=== PATIENT | female | born 1965 | race Two or more races ===

== ENCOUNTER 2017-03-27 06:40 | Outpatient (CLI) | payer OTHER ==
[~2017-03-27 06:40] MED LIST: ADVAIR 2501 DISK W/1 IH; DEPO-MEDROL40 MG/ML IU; DICLOFENAC POTA50 MG PO; NABUMETONE500 MG PO; NEURONTIN300 MG PO; NORFLEX100MG PO; PROVENTIL2.5 MG/3 M IH; SINGULAIR 10MG10 MG PO; SYNTHROID150 MCG PO; XYLOCAINE-MP10 MG/ML IU; ZANAFLEX4 M1 PO
== END 2017-03-27 06:53 | disposition home or self-care (01) ==
LOC: LAB 06:40
DX: D64.89 Other specified anemias (principal); E11.9 Type 2 diabetes mellitus without complications; E78.2 Mixed hyperlipidemia; I10 Essential (primary) hypertension; E03.8 Other specified hypothyroidism

== ENCOUNTER 2017-03-27 09:18 | Outpatient (CLI) | payer OTHER | END 2017-03-27 09:29 | disposition home or self-care (01) | LOC: NUCLEAR 09:18 | DX: M81.0 Age-related osteoporosis without current pathological fracture (principal) ==

== ENCOUNTER 2017-10-19 07:17 | Outpatient (CLI) | payer OTHER ==
[~2017-10-19 07:17] MED LIST changes: +CELEBREX200MG PO
== END 2017-10-19 07:33 | disposition home or self-care (01) ==
LOC: RAD 07:17 → MRI 10:15
DX: M54.12 Radiculopathy, cervical region (principal)

== ENCOUNTER 2017-12-04 13:12 | Outpatient (CLI) | payer OTHER | END 2017-12-04 13:32 | disposition home or self-care (01) | LOC: SONOGRAMA 13:12 | DX: N60.11 Diffuse cystic mastopathy of right breast (principal); N60.12 Diffuse cystic mastopathy of left breast; N63.11 Unspecified lump in the right breast, upper outer quadrant ==

== ENCOUNTER 2018-08-27 07:32 | Outpatient (CLI) | payer OTHER | END 2018-08-27 09:25 | disposition home or self-care (01) | LOC: TOM 07:32 | DX: R06.02 Shortness of breath (principal); J43.2 Centrilobular emphysema; J30.1 Allergic rhinitis due to pollen; Z87.891 Personal history of nicotine dependence ==

== ENCOUNTER 2018-11-26 07:17 | Outpatient (CLI) | payer OTHER | END 2018-11-26 07:30 | disposition home or self-care (01) | LOC: MAMO-SONO 07:17 | DX: N60.11 Diffuse cystic mastopathy of right breast (principal); Z12.31 Encounter for screening mammogram for malignant neoplasm of breast; Z87.898 Personal history of other specified conditions ==

== ENCOUNTER 2018-12-20 07:10 | Outpatient (CLI) | payer OTHER | END 2018-12-20 07:25 | disposition home or self-care (01) | LOC: LAB 07:10 | DX: D68.8 Other specified coagulation defects (principal); I10 Essential (primary) hypertension ==

== ENCOUNTER 2020-10-16 10:26 | Outpatient (CLI) | payer OTHER | END 2020-10-16 10:48 | disposition home or self-care (01) | LOC: MAMO-SONO 10:26 | PROVIDERS: ATTEND Internal Medicine Geriatric Medicine | DX: N63.10 Unspecified lump in the right breast, unspecified quadrant (principal); N63.20 Unspecified lump in the left breast, unspecified quadrant; Z12.31 Encounter for screening mammogram for malignant neoplasm of breast; C50.919 Malignant neoplasm of unspecified site of unspecified female breast; N64.4 Mastodynia; N60.11 Diffuse cystic mastopathy of right breast; N60.12 Diffuse cystic mastopathy of left breast ==

== ENCOUNTER 2020-11-05 14:37 | Outpatient (CLI) | payer OTHER | END 2020-11-05 14:38 | disposition home or self-care (01) | LOC: NUCLEAR 14:37 | PROVIDERS: ATTEND Internal Medicine Geriatric Medicine | DX: M81.0 Age-related osteoporosis without current pathological fracture (principal); M15.0 Primary generalized (osteo)arthritis ==

== ENCOUNTER 2020-12-29 09:05 | Outpatient (CLI) | payer OTHER | END 2020-12-29 09:13 | disposition home or self-care (01) | LOC: RAD 09:05 | PROVIDERS: ATTEND Internal Medicine Geriatric Medicine | DX: I11.9 Hypertensive heart disease without heart failure (principal); Q33.0 Congenital cystic lung; R06.02 Shortness of breath ==

== ENCOUNTER 2021-04-01 13:33 | Outpatient (CLI) | payer OTHER | END 2021-04-01 13:34 | disposition home or self-care (01) | LOC: SONOGRAMA 13:33 | PROVIDERS: ATTEND Surgery | DX: N60.11 Diffuse cystic mastopathy of right breast (principal); N60.12 Diffuse cystic mastopathy of left breast ==

== ENCOUNTER 2021-12-04 11:40 | Outpatient (CLI) | payer OTHER | END 2021-12-04 11:50 | disposition home or self-care (01) | LOC: RAD 11:40 | PROVIDERS: ATTEND Physical Medicine & Rehabilitation | DX: R25.2 Cramp and spasm (principal); M54.2 Cervicalgia; M47.812 Spondylosis without myelopathy or radiculopathy, cervical region ==

== ENCOUNTER 2022-04-16 15:38 | Outpatient (CLI) | payer OTHER | END 2022-04-16 15:47 | disposition home or self-care (01) | LOC: RAD 15:38 | PROVIDERS: ATTEND Internal Medicine Rheumatology | DX: M25.552 Pain in left hip (principal) ==

== ENCOUNTER 2022-04-22 13:27 | Outpatient (CLI) | payer OTHER | END 2022-04-22 13:39 | disposition home or self-care (01) | LOC: MAMO-SONO 13:27 | PROVIDERS: ATTEND Internal Medicine Endocrinology, Diabetes & Metabolism | DX: N64.1 Fat necrosis of breast (principal) ==

== ENCOUNTER 2023-09-25 11:46 | Outpatient (CLI) | payer OTHER | END 2023-09-25 11:49 | disposition home or self-care (01) | LOC: MAMO-SONO 11:46 | PROVIDERS: ATTEND Internal Medicine Sports Medicine | DX: Z12.39 Encounter for other screening for malignant neoplasm of breast (principal) ==

== ENCOUNTER 2023-09-25 13:14 | Outpatient (CLI) | payer OTHER | END 2023-09-25 14:40 | disposition home or self-care (01) | LOC: NUCLEAR 13:14 | PROVIDERS: ATTEND Internal Medicine Sports Medicine | DX: M81.0 Age-related osteoporosis without current pathological fracture (principal) ==

== ENCOUNTER → 2023-12-04 07:09 | Outpatient (CLI) | payer OTHER ==
[2023-12-04 08:30] LABS: HEMATOCRIT 43.5 % (36.0-45.00); HEMOGLOBIN 14.9 g/dL (12.0-15.00); MEAN CELL VOLUME 86.1 fL (80.00-100.00); MEAN CORPUSCULAR HEMOGLOBIN 29.5 pg (27.00-32.0); MEAN CORPUSCULAR HGB CONC 34.3 g/dl (32.0-36.0); PLATELET COUNT 270 K/uL (150-450); RED BLOOD COUNT 5.04 M/uL (4.00-6.00); RED CELL DISTRIBUTION WIDTH 14.3 % (11.5-14.5)
[2023-12-04 08:34] LABS: PH,URINE 5.5 (5.0-8.0); URINE APPEARANCE Clear; URINE BILIRRUBIN Negative (NEGATIVE); URINE BLOOD Negative; URINE COLOR Yellow; URINE GLUCOSE Negative (NEGATIVE); URINE KETONE Negative (NEGATIVE); URINE LEUKOCYTE Negative; URINE NITRATE Negative; URINE PROTEIN Negative (NEGATIVE)
[2023-12-04 08:40] LABS: URINE BACTERIA 147.3 uL (0.0-1933); URINE EPITHELIAL CELLS 7.8 uL (0.0-38.8); URINE RBC 2.2 uL (0.0-20.8)
[2023-12-04 09:40] LABS: % SATURACION 21.7 % (15-50); ALBUMIN 3.6 gm/dL (3.4-5.0); BILIRUBIN TOTAL 0.71 mg/dL (0.3-1.2); CALCIUM 9.1 mg/dL (8.5-10.1); CHOL HDL RATIO 3.9 (0-5.0); CREATININE SERUM 0.48 mg/dL (0.55-1.02); FERRITIN 45.3 NG/ML (8-252); GFR 131.92; GLOBULINA 3.4 G/DL (2.4-3.5); POTASSIUM 3.84 mEq/L (3.5-5.1); TSH 1.21 uIU/mL (0.358-3.74)
[2023-12-04 11:10] LABS: FOLIC ACID 13.26 ng/ml (4.78-20); VITAMIN D3 25 HYDROXY 22.15 ng/ml (30-120)
[2023-12-04 13:13] LABS: MANUAL PLATELET COUNT 668
[2023-12-04 13:15] LABS: PLATELET ESTIMATE INCREASED (NORMAL)
[2023-12-05 09:07] LABS: CA 125 6.1 U/mL (0.0-38.1)
[2023-12-05 13:05] LABS: hgb a 97.1 % (96.4-98.8); hgb a2 2.9 % (1.8-3.2); hgb f 0 % (0.0-2.0); hgb s 0 % (0.0)
[2023-12-07 15:09] LABS: INTRINSIC FACTOR BLOCKING AB 1.1 AU/mL (0.0-1.1); PARIETAL CELL ANTIBODIES 1.9 Units (0.0-20.0)
== END | disposition home or self-care (01) ==
LOC: LAB 07:09
PROVIDERS: ATTEND Internal Medicine Hematology & Oncology
DX: Z80.3 Family history of malignant neoplasm of breast (principal); M81.0 Age-related osteoporosis without current pathological fracture; E03.8 Other specified hypothyroidism; E78.2 Mixed hyperlipidemia; E03.2 Hypothyroidism due to medicaments and other exogenous substances; E89.0 Postprocedural hypothyroidism; M79.7 Fibromyalgia; D75.0 Familial erythrocytosis; D75.1 Secondary polycythemia; Z72.0 Tobacco use; J43.2 Centrilobular emphysema; R06.02 Shortness of breath; Z87.891 Personal history of nicotine dependence; D50.8 Other iron deficiency anemias; R79.9 Abnormal finding of blood chemistry, unspecified; I10 Essential (primary) hypertension; R74.02 Elevation of levels of lactic acid dehydrogenase [LDH]; K76.89 Other specified diseases of liver; D51.0 Vitamin B12 deficiency anemia due to intrinsic factor deficiency; C56.9 Malignant neoplasm of unspecified ovary; R97.0 Elevated carcinoembryonic antigen [CEA]; D50.9 Iron deficiency anemia, unspecified; E03.9 Hypothyroidism, unspecified; I11.9 Hypertensive heart disease without heart failure; E56.8 Deficiency of other vitamins; N39.0 Urinary tract infection, site not specified; Z12.11 Encounter for screening for malignant neoplasm of colon; R19.5 Other fecal abnormalities; E55.9 Vitamin D deficiency, unspecified; N19 Unspecified kidney failure; E11.9 Type 2 diabetes mellitus without complications

== ENCOUNTER 2023-12-25 11:16 | Outpatient (CLI) | payer OTHER | END 2023-12-25 11:21 | disposition home or self-care (01) | LOC: TOM 11:16 | PROVIDERS: ATTEND Internal Medicine Pulmonary Disease | DX: J43.2 Centrilobular emphysema (principal); R06.02 Shortness of breath; Z87.891 Personal history of nicotine dependence ==

== ENCOUNTER 2024-02-23 06:31 | Outpatient (CLI) | payer OTHER ==
[2024-02-23 07:09] LABS: HEMATOCRIT 43.3 % (36.0-45.00); MEAN CELL VOLUME 85.2 fL (80.00-100.00); MEAN CORPUSCULAR HEMOGLOBIN 29.5 pg (27.00-32.0); MEAN CORPUSCULAR HGB CONC 34.6 g/dl (32.0-36.0); PLATELET COUNT 326 K/uL (150-450); RED BLOOD COUNT 5.08 M/uL (4.00-6.00); RED CELL DISTRIBUTION WIDTH 14.5 % (11.5-14.5)
[2024-02-23 07:29] LABS: URINE APPEARANCE Clear; URINE BILIRRUBIN Negative (NEGATIVE); URINE BLOOD Negative; URINE COLOR Yellow; URINE GLUCOSE Negative (NEGATIVE); URINE KETONE Negative (NEGATIVE); URINE LEUKOCYTE Negative; URINE NITRATE Negative; URINE PROTEIN Negative (NEGATIVE); URINE UROBILINOGEN 0.2 E.U./dl
[2024-02-23 07:50] LABS: URINE BACTERIA 2357.2 uL (0.0-1933); URINE EPITHELIAL CELLS 28.8 uL (0.0-38.8); URINE RBC 6.7 uL (0.0-20.8); URINE WBC 21.2 uL (0.0-23.2)
[2024-02-23 08:08] LABS: ALBUMIN 3.7 gm/dL (3.4-5.0); BILIRUBIN TOTAL 0.78 mg/dL (0.3-1.2); CALCIUM 9.4 mg/dL (8.5-10.1); CHOL HDL RATIO 3.6 (0-5.0); CREATININE SERUM 0.57 mg/dL (0.55-1.02); GFR 108.19; GLOBULINA 3.4 G/DL (2.4-3.5); POTASSIUM 4.23 mEq/L (3.5-5.1); T4 FREE 1.42 NG/ML (0.76-1.46); TOTAL PROTEIN 7.1 gm/dL (6.4-8.2); TSH 2.88 uIU/mL (0.358-3.74)
[2024-02-23 08:18] LABS: URINE CAST 0.29 uL (0.0-1.40)
== END 2024-02-23 06:32 | disposition home or self-care (01) ==
LOC: LAB 06:31
PROVIDERS: ATTEND Internal Medicine Sports Medicine
DX: D64.9 Anemia, unspecified (principal); E11.9 Type 2 diabetes mellitus without complications; E78.2 Mixed hyperlipidemia; I10 Essential (primary) hypertension; E03.8 Other specified hypothyroidism; E55.9 Vitamin D deficiency, unspecified

== ENCOUNTER 2024-05-01 12:16 | Inpatient (IN) | payer OTHER ==
[~2024-05-01] VITALS: Ht 170.2 cm; Wt 101.6 kg
[2024-05-01] MEDS ORDERED: ALCLOMETASONE D15 GM TP (12:55)
[2024-05-01] MEDS ORDERED: LIPITOR20 MG PO (12:55)
[2024-05-01] MEDS ORDERED: DIPROSONE OINT.15 GM TP (12:56)
[2024-05-01] MEDS ORDERED: AZELASTINE137 MCG/0. NS (12:56)
[2024-05-01] MEDS ORDERED: DULOXETINE HCL40 MG PO (12:56)
[2024-05-01] MEDS ORDERED: HORIZANT300 MG PO (12:57)
[2024-05-01] MEDS ORDERED: PROTONIX40 M1 PO (12:58)
[2024-05-01] MEDS ORDERED: QUETIAPINE FUM400 M1 PO (12:58)
[2024-05-01] MEDS ORDERED: NABUMETONE750 MG PO (12:58)
[2024-05-01] MEDS ORDERED: NORFLEX100MG PO (12:58)
[2024-05-01] MEDS ORDERED: PROAIR RESPICL90 MCG IH (12:58)
[2024-05-01] MEDS ORDERED: SPIRIVA RESPIMAT4 GM IH (12:59)
[2024-05-01] MEDS ORDERED: SYNTHROID125 MCG PO (12:59)
[2024-05-01] MEDS ORDERED: TRAZODONE HCL150 MG PO (12:59)
[2024-05-01] MEDS ORDERED: VITAMIN D31250 MCG PO (13:00)
[2024-05-01] MEDS ORDERED: ACETAMINOPHEN 500 MG GEL..CAP PO STA (13:14)
[2024-05-01] MEDS ORDERED: ACETAMINOPHEN 500 MG GEL..CAP PO ONE (13:44)
[2024-05-01 14:35] LABS: MEAN CORPUSCULAR HGB CONC 34.1 g/dl (32.0-36.0); PLATELET COUNT 241 K/uL (150-450); RED BLOOD COUNT 5.18 M/uL (4.00-6.00); RED CELL DISTRIBUTION WIDTH 14.2 % (11.5-14.5)
[2024-05-01] MEDS ORDERED: 0.9 % SODIUM CHLORIDE 1,000 ML IV STA (15:04)
[2024-05-01 17:05] LABS: ALBUMIN 3.1 gm/dL (3.4-5.0); BILIRUBIN TOTAL 2.87 mg/dL (0.3-1.2); BILIRUBIN,CONJUGATED 1.32 mg/dL (0.0-0.2); BILIRUBIN,UNCONJUGATED 1.55 mg/dL (0.0-0.6); CALCIUM 10.3 mg/dL (8.5-10.1); CREATININE SERUM 1.38 mg/dL (0.55-1.02); GFR 38.87; POTASSIUM 4.4 mEq/L (3.5-5.1); TOTAL PROTEIN 7.9 gm/dL (6.4-8.2)
[2024-05-01 17:13] LABS: URINE APPEARANCE Turbid; URINE BILIRRUBIN Moderate (NEGATIVE); URINE BLOOD Moderate; URINE COLOR Orange; URINE KETONE Negative (NEGATIVE); URINE LEUKOCYTE Moderate; URINE NITRATE Positive
[2024-05-01 17:17] LABS: URINE EPITHELIAL CELLS 82.6 uL (0.0-38.8); URINE RBC 52.7 uL (0.0-20.8); URINE WBC 211.3 uL (0.0-23.2)
[2024-05-01 17:41] LABS: URINE BACTERIA > 9821.5 uL (0.0-1933); URINE CAST > 21.83 uL (0.0-1.40); URINE GLUCOSE 100 MG/DL (NEGATIVE); URINE PROTEIN 300 (NEGATIVE)
[2024-05-01 18:25] LABS: LIPASE 9 U/L (13-75)
[2024-05-01 18:34] LABS: AMYLASE 11 U/L (25-115)
[2024-05-01] MEDS ORDERED: ACETAMINOPHEN 500 MG GEL..CAP PO PRN (18:45)
[2024-05-01] MEDS ORDERED: FAMOTIDINE/PF 20 MG in 0.9 % SODIUM CHLORIDE 8 ML IV PUSH ONE (18:45)
[2024-05-01] MEDS ORDERED: PIPERACILLIN/TAZOBACTAM SODIUM 3.375 GM in DEXTROSE 5 % IN WATER 100 ML IV ONE (18:45)
[2024-05-01] MEDS ORDERED: FAMOTIDINE/PF 20 MG/2 ML VIAL ONE (18:48)
[2024-05-01] MEDS ORDERED: PIPERACILLIN/TAZOBACTAM SODIUM 3.375 GM VIAL IV ONE (18:48)
[2024-05-01] MEDS ORDERED: LEVALBUTEROL HCL 1.25 MG/3 ML SOLUTION IH SCH ×2 (19:42→20:00)
[2024-05-01] MEDS ORDERED: METHYLPREDNISOLONE SOD SUCC 125 MG VIAL IV ONE (19:45)
[2024-05-01] MEDS ORDERED: 0.9 % SODIUM CHLORIDE 1,000 ML IV SCH (19:45)
[2024-05-01] MEDS ORDERED: BUDESONIDE 0.5 MG/2 ML AMPUL.NEB IH ONE (19:59)
[2024-05-01] MEDS ORDERED: IPRATROPIUM BROMIDE 0.5 MG/2.5 ML AMPUL.NEB IH ONE (19:59)
[2024-05-01] MEDS ORDERED: IPRATROPIUM BROMIDE 0.5 MG/2.5 ML AMPUL.NEB IH SCH ×2 (20:00)
[2024-05-01] MEDS ORDERED: 0.9 % SODIUM CHLORIDE 500 ML IV ONE (20:00)
[2024-05-01] MEDS ORDERED: LEVALBUTEROL HCL 0.63 MG/3 ML SOLUTION IH ONE (20:00)
[2024-05-01] MEDS ORDERED: BUDESONIDE 0.5 MG/2 ML AMPUL.NEB IH SCH (21:00)
[2024-05-01 21:42] LABS: INR 1.18; PARTIAL THROMBOPLASTIN TIME 29.5 SECONDS (22.0-34.0); PROTHROMBIN TIME 12.7 SECONDS (9.0-11.5)
[2024-05-02] VITALS: BP 101/68; O2SAT 98
[2024-05-02] MEDS ORDERED: PIPERACILLIN/TAZOBACTAM SODIUM 3.375 GM in DEXTROSE 5 % IN WATER 100 ML IV SCH
[2024-05-02 00:18] LABS: ABG PO2 74.6 mmHg (80-100); ABG pCO2 30.4 mmHg (35-45); BASE EXCESS -2.7 mmol/l; BICARBONATE 20.2 mmol/l (23-25); SaO2 95.3 %; Tco2 21.1 mmol/l
[2024-05-02 01:43] LABS: allen test SATISFACTORY; o2 21 %; puncture site RADIAL RIGHT
[2024-05-02 03:32] VITALS: BP 135/79
[2024-05-02] MEDS ORDERED: LEVOTHYROXINE SODIUM 125 MCG TABLET PO SCH (06:00)
[2024-05-02] MEDS ORDERED: FAMOTIDINE/PF 20 MG in 0.9 % SODIUM CHLORIDE 8 ML IV PUSH SCH (09:00)
[2024-05-02] MEDS ORDERED: Duloxetine HCl 60 MG CAPSULE.DR PO SCH (09:00)
[2024-05-02] MEDS ORDERED: ENOXAPARIN SODIUM 40 MG/0.4 ML SYRINGE SUBCUTANEO SCH (09:00)
[2024-05-02] MEDS ORDERED: GABAPENTIN 300 MG CAPSULE PO SCH (09:00)
[2024-05-02] MEDS ORDERED: QUETIAPINE FUMARATE 100 MG TABLET PO SCH (09:00)
[2024-05-02 09:14] VITALS: BP 111/70; O2SAT 98
[2024-05-02 11:37] LABS: HEMATOCRIT 39.2 % (36.0-45.00); HEMOGLOBIN 14.1 g/dL (12.0-15.00); MEAN CORPUSCULAR HGB CONC 36.1 g/dl (32.0-36.0); PLATELET COUNT 178 K/uL (150-450); RED BLOOD COUNT 4.72 M/uL (4.00-6.00); RED CELL DISTRIBUTION WIDTH 14.3 % (11.5-14.5)
[2024-05-02 12:23] LABS: ALBUMIN 2.7 gm/dL (3.4-5.0); BILIRUBIN TOTAL 2.29 mg/dL (0.3-1.2); BILIRUBIN,CONJUGATED 1.19 mg/dL (0.0-0.2); BILIRUBIN,UNCONJUGATED 1.1 mg/dL (0.0-0.6); CALCIUM 9.5 mg/dL (8.5-10.1); CREATININE SERUM 1.03 mg/dL (0.55-1.02); GFR 54.47; MAGNESIUM 2.1 mg/dL (1.8-2.4); POTASSIUM 4.11 mEq/L (3.5-5.1); TOTAL PROTEIN 6.3 gm/dL (6.4-8.2); TSH 0.358 uIU/mL (0.358-3.74)
[2024-05-02 13:04] LABS: PHOSPHOROUS 1.8 mg/dL (2.5-4.9)
[2024-05-02] MEDS ORDERED: PIPERACILLIN/TAZOBACTAM SODIUM 2.25 GM VIAL IV ONE (16:19)
[2024-05-02] MEDS ORDERED: TRAZODONE HCL 50 MG TABLET PO SCH (17:00)
[2024-05-02 17:12] VITALS: BP 101/66
[2024-05-02] MEDS ORDERED: POTASSIUM PHOS,M-BASIC-D-BASIC 3 MM/ML VIAL IV ONE (17:30)
[2024-05-02] MEDS ORDERED: PIPERACILLIN/TAZOBACTAM SODIUM 2.25 GM in 0.9 % SODIUM CHLORIDE 50 ML IV SCH (18:00)
[2024-05-03 01:18] VITALS: BP 117/66
[2024-05-03 09:25] VITALS: BP 124/81; O2SAT 98
[2024-05-03] MEDS ORDERED: (FF) Daptomycin 50 MG/ML IV STA (10:00)
[2024-05-03 10:04] LABS: HEMATOCRIT 37.2 % (36.0-45.00); HEMOGLOBIN 12.4 g/dL (12.0-15.00); MEAN CELL VOLUME 85.5 fL (80.00-100.00); MEAN CORPUSCULAR HEMOGLOBIN 28.4 pg (27.00-32.0); MEAN CORPUSCULAR HGB CONC 33.2 g/dl (32.0-36.0); PLATELET COUNT 182 K/uL (150-450); RED BLOOD COUNT 4.36 M/uL (4.00-6.00); RED CELL DISTRIBUTION WIDTH 14.1 % (11.5-14.5)
[2024-05-03 10:52] LABS: ALBUMIN 2.2 gm/dL (3.4-5.0); BILIRUBIN TOTAL 1.25 mg/dL (0.3-1.2); BILIRUBIN,CONJUGATED 0.73 mg/dL (0.0-0.2); BILIRUBIN,UNCONJUGATED 0.52 mg/dL (0.0-0.6); CALCIUM 9.6 mg/dL (8.5-10.1); CREATININE SERUM 0.62 mg/dL (0.55-1.02); GFR 97.86; MAGNESIUM 2.3 mg/dL (1.8-2.4); PHOSPHOROUS 2.2 mg/dL (2.5-4.9); POTASSIUM 4.31 mEq/L (3.5-5.1); TOTAL PROTEIN 5.6 gm/dL (6.4-8.2)
[2024-05-03] MEDS ORDERED: POTASSIUM PHOS,M-BASIC-D-BASIC 3 MM/ML VIAL IV NR (11:30)
[2024-05-03] MEDS ORDERED: PIPERACILLIN/TAZOBACTAM SODIUM 3.375 GM in 0.9 % SODIUM CHLORIDE 100 ML IV SCH (12:00)
[2024-05-03] MEDS ORDERED: METHYLPREDNISOLONE SOD SUCC 40 MG VIAL IV NR (13:30)
[2024-05-03] MEDS ORDERED: DIPHENHYDRAMINE HCL 50 MG/ML VIAL 1ML IV NR (13:30)
[2024-05-03 18:25] VITALS: BP 135/71
[2024-05-04 01:48] VITALS: BP 110/65
[2024-05-04] MEDS ORDERED: CLONAZEPAM 1 MG TABLET PO STA (08:17)
[2024-05-04] MEDS ORDERED: METHYLPREDNISOLONE SOD SUCC 40 MG VIAL IV NR (08:30)
[2024-05-04] MEDS ORDERED: DIPHENHYDRAMINE HCL 25 MG in 0.9 % SODIUM CHLORIDE 25 ML IV NR (08:30)
[2024-05-04 09:39] VITALS: BP 116/72
[2024-05-04 10:08] LABS: hav igm Negative (Negative); hcv Non Reactive (Non Reactive); hep b c Negative (Negative); hep b s ag Negative (Negative)
[2024-05-04] MEDS ORDERED: BENZONATATE 100 MG CAPSULE PO STA (12:31)
[2024-05-04] MEDS ORDERED: (FF) Daptomycin 50 MG/ML IV SCH (17:00)
[2024-05-04] MEDS ORDERED: GUAIFENESIN 600 MG TABLET.SA PO SCH (17:00)
[2024-05-04 17:36] VITALS: BP 132/75; O2SAT 97
[2024-05-04] MEDS ORDERED: METHYLPREDNISOLONE SOD SUCC 40 MG VIAL IV STA (18:37)
[2024-05-04] MEDS ORDERED: BENZONATATE 100 MG CAPSULE PO SCH (21:00)
[2024-05-05 03:23] VITALS: BP 123/79
[2024-05-05 07:18] LABS: BILIRUBIN TOTAL 1.34 mg/dL (0.3-1.2); BILIRUBIN,CONJUGATED 0.64 mg/dL (0.0-0.2); BILIRUBIN,UNCONJUGATED 0.7 mg/dL (0.0-0.6); CALCIUM 8.6 mg/dL (8.5-10.1); CREATININE SERUM 0.63 mg/dL (0.55-1.02); GFR 96.07; MAGNESIUM 2.2 mg/dL (1.8-2.4); PHOSPHOROUS 2.7 mg/dL (2.5-4.9); POTASSIUM 3.9 mEq/L (3.5-5.1); TOTAL PROTEIN 5.5 gm/dL (6.4-8.2)
[2024-05-05 07:29] LABS: C-REACTIVE PROTEIN 18.9 MG/DL (0.00-0.29)
[2024-05-05] MEDS ORDERED: METHYLPREDNISOLONE SOD SUCC 40 MG VIAL IV SCH (09:00)
[2024-05-05 09:01] VITALS: BP 110/66
[2024-05-05 11:11] LABS: HEMATOCRIT 39.6 % (36.0-45.00); HEMOGLOBIN 13.3 g/dL (12.0-15.00); MEAN CELL VOLUME 85.3 fL (80.00-100.00); MEAN CORPUSCULAR HEMOGLOBIN 28.6 pg (27.00-32.0); MEAN CORPUSCULAR HGB CONC 33.5 g/dl (32.0-36.0); PLATELET COUNT 195 K/uL (150-450); RED BLOOD COUNT 4.64 M/uL (4.00-6.00); RED CELL DISTRIBUTION WIDTH 14.6 % (11.5-14.5)
[2024-05-05 18:39] VITALS: BP 139/84
[2024-05-05] MEDS ORDERED: FAMOtidine 20 MG TABLET PO SCH (21:00)
[2024-05-06 03:13] VITALS: BP 112/65; O2SAT 97
[2024-05-06 09:24] VITALS: BP 124/88; O2SAT 96
[2024-05-06 17:49] VITALS: BP 146/85
[2024-05-06] MEDS ORDERED: METHYLPREDNISOLONE SOD SUCC 40 MG VIAL IV SCH (21:00)
[2024-05-07 01:56] VITALS: BP 107/62; O2SAT 97
[2024-05-07 08:23] LABS: HEMATOCRIT 38.1 % (36.0-45.00); HEMOGLOBIN 12.7 g/dL (12.0-15.00); MEAN CELL VOLUME 85.4 fL (80.00-100.00); MEAN CORPUSCULAR HEMOGLOBIN 28.4 pg (27.00-32.0); MEAN CORPUSCULAR HGB CONC 33.3 g/dl (32.0-36.0); PLATELET COUNT 240 K/uL (150-450); RED BLOOD COUNT 4.46 M/uL (4.00-6.00); RED CELL DISTRIBUTION WIDTH 15.1 % (11.5-14.5)
[2024-05-07 09:10] LABS: BILIRUBIN TOTAL 0.62 mg/dL (0.3-1.2); BILIRUBIN,CONJUGATED 0.22 mg/dL (0.0-0.2); BILIRUBIN,UNCONJUGATED 0.4 mg/dL (0.0-0.6); CALCIUM 9.2 mg/dL (8.5-10.1); CREATININE SERUM 0.6 mg/dL (0.55-1.02); GFR 101.63; MAGNESIUM 2.1 mg/dL (1.8-2.4); POTASSIUM 5.12 mEq/L (3.5-5.1); TOTAL PROTEIN 5.4 gm/dL (6.4-8.2)
[2024-05-07 09:50] VITALS: BP 107/70; O2SAT 99
[2024-05-07 18:26] VITALS: BP 131/77; O2SAT 100
[2024-05-08 02:53] VITALS: BP 109/67; O2SAT 98
[2024-05-08 12:09] VITALS: BP 111/74
[2024-05-08 19:26] VITALS: BP 110/67; O2SAT 98
[2024-05-09 01:21] VITALS: BP 101/60; O2SAT 98
[2024-05-09] MEDS ORDERED: METHYLPREDNISOLONE SOD SUCC 40 MG VIAL IV SCH (09:00)
[2024-05-09 09:39] VITALS: BP 117/71
[2024-05-09] MEDS ORDERED: fentaNYL CITRATE 50 MCG/ML AMPUL IV PUSH ONE (15:45)
[2024-05-09] MEDS ORDERED: MIDAZOLAM HCL 2 MG/2 ML VIAL IV PUSH ONE (15:45)
[2024-05-09] MEDS ORDERED: PIPERACILLIN/TAZOBACTAM SODIUM 3.375 GM VIAL IV ONE (16:21)
[2024-05-09 16:30] VITALS: BP 103/83
[2024-05-10 02:50] VITALS: BP 109/70
[2024-05-10 08:00] VITALS: BP 131/78
[2024-05-10 09:16] LABS: HEMATOCRIT 40.1 % (36.0-45.00); MEAN CELL VOLUME 86.9 fL (80.00-100.00); MEAN CORPUSCULAR HEMOGLOBIN 28.2 pg (27.00-32.0); MEAN CORPUSCULAR HGB CONC 32.4 g/dl (32.0-36.0); RED BLOOD COUNT 4.61 M/uL (4.00-6.00); RED CELL DISTRIBUTION WIDTH 15.3 % (11.5-14.5)
[2024-05-10 09:53] LABS: ALBUMIN 2.3 gm/dL (3.4-5.0); BILIRUBIN TOTAL 0.92 mg/dL (0.3-1.2); BILIRUBIN,CONJUGATED 0.21 mg/dL (0.0-0.2); BILIRUBIN,UNCONJUGATED 0.71 mg/dL (0.0-0.6); CREATININE SERUM 0.61 mg/dL (0.55-1.02); GFR 99.71; MAGNESIUM 2.4 mg/dL (1.8-2.4); PHOSPHOROUS 3.3 mg/dL (2.5-4.9); POTASSIUM 4.58 mEq/L (3.5-5.1); TOTAL PROTEIN 5.9 gm/dL (6.4-8.2)
[2024-05-10 09:56] LABS: C-REACTIVE PROTEIN 12.4 MG/DL (0.00-0.29)
[2024-05-10 10:09] LABS: PLATELET COUNT 387 K/uL (150-450)
[2024-05-10 16:34] VITALS: BP 110/63
[2024-05-10] MEDS ORDERED: SODIUM CL 0.9% 100 ML IV.SOLN IV ONE (16:41)
[2024-05-11 02:37] VITALS: BP 114/63
[2024-05-11 09:33] VITALS: BP 132/76
[2024-05-11 19:40] VITALS: BP 160/85; O2SAT 97
[2024-05-12 01:44] VITALS: BP 98/53
[2024-05-12 09:30] VITALS: BP 109/68; O2SAT 99
[2024-05-12 18:51] VITALS: BP 110/68; O2SAT 96
[2024-05-13 01:30] VITALS: BP 163/83
[2024-05-13 07:21] LABS: ALBUMIN 2.1 gm/dL (3.4-5.0); BILIRUBIN TOTAL 0.76 mg/dL (0.3-1.2); CALCIUM 8.6 mg/dL (8.5-10.1); CREATININE SERUM 0.61 mg/dL (0.55-1.02); GFR 99.71; GLOBULINA 3.4 G/DL (2.4-3.5); MAGNESIUM 2.4 mg/dL (1.8-2.4); POTASSIUM 4.28 mEq/L (3.5-5.1); TOTAL PROTEIN 5.5 gm/dL (6.4-8.2)
[2024-05-13 07:25] LABS: C-REACTIVE PROTEIN 10.6 MG/DL (0.00-0.29)
[2024-05-13 08:21] LABS: HEMATOCRIT 30.6 % (36.0-45.00); HEMOGLOBIN 10.9 g/dL (12.0-15.00); MEAN CELL VOLUME 84.1 fL (80.00-100.00); MEAN CORPUSCULAR HGB CONC 35.7 g/dl (32.0-36.0); PLATELET COUNT 332 K/uL (150-450); RED BLOOD COUNT 3.63 M/uL (4.00-6.00); RED CELL DISTRIBUTION WIDTH 15.1 % (11.5-14.5)
[2024-05-13 08:26] VITALS: BP 111/73
[2024-05-13] MEDS ORDERED: METHYLPREDNISOLONE SOD SUCC 40 MG VIAL ONE (10:59)
[2024-05-13] MEDS ORDERED: DIPHENHYDRAMINE HCL 50 MG/ML VIAL 1ML ONE (10:59)
[2024-05-13] MEDS ORDERED: DIPHENHYDRAMINE HCL 50 MG/ML VIAL 1ML IV ONE (11:15)
[2024-05-13] MEDS ORDERED: METHYLPREDNISOLONE SOD SUCC 40 MG VIAL IV ONE (11:15)
[2024-05-13 18:45] VITALS: BP 140/85; O2SAT 97
[2024-05-13] MEDS ORDERED: POLYETHYLENE GLYCOL 3350 17 GM BLIST.PACK PO SCH (21:00)
[2024-05-14 02:14] VITALS: BP 129/75
[2024-05-14 08:19] VITALS: BP 117/74
[2024-05-14 17:45] VITALS: BP 123/80; O2SAT 97
[2024-05-15 02:03] VITALS: BP 100/50
[2024-05-15 09:27] VITALS: BP 128/81
[2024-05-15 17:48] VITALS: BP 142/87; O2SAT 98
[2024-05-15] MEDS ORDERED: CEFTRIAXONE SODIUM 2,000 MG VIAL IV SCH (18:20)
[2024-05-16 02:57] VITALS: BP 93/42
[2024-05-16 06:37] LABS: HEMATOCRIT 31.7 % (36.0-45.00); HEMOGLOBIN 10.9 g/dL (12.0-15.00); MEAN CELL VOLUME 85.2 fL (80.00-100.00); MEAN CORPUSCULAR HEMOGLOBIN 29.2 pg (27.00-32.0); MEAN CORPUSCULAR HGB CONC 34.2 g/dl (32.0-36.0); PLATELET COUNT 414 K/uL (150-450); RED BLOOD COUNT 3.72 M/uL (4.00-6.00)
[2024-05-16 07:34] LABS: ALBUMIN 2.1 gm/dL (3.4-5.0); BILIRUBIN TOTAL 0.36 mg/dL (0.3-1.2); CALCIUM 8.7 mg/dL (8.5-10.1); CREATININE SERUM 0.62 mg/dL (0.55-1.02); GFR 97.86; GLOBULINA 3.4 G/DL (2.4-3.5); POTASSIUM 4.63 mEq/L (3.5-5.1); TOTAL PROTEIN 5.5 gm/dL (6.4-8.2)
[2024-05-16 09:45] VITALS: BP 119/76
[2024-05-16] MEDS ORDERED: LEVALBUTEROL HCL 1.25 MG/3 ML SOLUTION IH SCH (13:00)
[2024-05-16] MEDS ORDERED: IPRATROPIUM BROMIDE 0.5 MG/2.5 ML AMPUL.NEB IH SCH (17:00)
[2024-05-16 18:31] VITALS: BP 105/58
[2024-05-17 01:31] VITALS: BP 90/50; O2SAT 96
[2024-05-17 08:58] VITALS: BP 119/75
[2024-05-17 16:55] VITALS: BP 137/80; O2SAT 97
[2024-05-17] MEDS ORDERED: MIDAZOLAM HCL 2 MG/2 ML VIAL IV PUSH ONE (18:00)
[2024-05-17] MEDS ORDERED: fentaNYL CITRATE 50 MCG/ML AMPUL IV PUSH ONE (18:00)
[2024-05-18 01:36] VITALS: BP 121/59
[2024-05-18 10:06] VITALS: BP 111/68; O2SAT 97
[2024-05-18 18:17] VITALS: BP 102/58; O2SAT 97
[2024-05-19 02:11] VITALS: BP 149/69
[2024-05-19 05:06] LABS: HEMATOCRIT 31.9 % (36.0-45.00); PLATELET COUNT 402 K/uL (150-450); RED BLOOD COUNT 3.71 M/uL (4.00-6.00); RED CELL DISTRIBUTION WIDTH 14.6 % (11.5-14.5)
[2024-05-19 05:07] LABS: HEMOGLOBIN 10.9 g/dL (12.0-15.00); MEAN CORPUSCULAR HEMOGLOBIN 29.3 pg (27.00-32.0)
[2024-05-19 05:37] LABS: ALBUMIN 2.2 gm/dL (3.4-5.0); BILIRUBIN TOTAL 0.47 mg/dL (0.3-1.2); CALCIUM 8.7 mg/dL (8.5-10.1); CREATININE SERUM 0.51 mg/dL (0.55-1.02); GFR 122.59; GLOBULINA 3.5 G/DL (2.4-3.5); POTASSIUM 4.06 mEq/L (3.5-5.1); TOTAL PROTEIN 5.7 gm/dL (6.4-8.2)
[2024-05-19 05:52] LABS: C-REACTIVE PROTEIN 9.08 MG/DL (0.00-0.29)
[2024-05-19 08:00] VITALS: BP 117/71
[2024-05-19] MEDS ORDERED: Duloxetine HCl 30 MG CAPSULE.DR PO SCH (09:00)
[2024-05-19 19:48] VITALS: BP 120/75; O2SAT 96
[2024-05-20 04:08] VITALS: BP 104/65
[2024-05-20 09:23] VITALS: BP 116/73
[2024-05-20 18:55] VITALS: BP 138/77; O2SAT 100
[2024-05-21 01:25] VITALS: BP 100/62; O2SAT 96
[2024-05-21 08:18] VITALS: BP 111/73
[2024-05-21 18:11] VITALS: BP 123/74; O2SAT 100
[2024-05-22 01:39] VITALS: BP 121/71; O2SAT 96
[2024-05-22 09:18] VITALS: BP 112/74
[2024-05-22 17:36] VITALS: BP 130/68; O2SAT 97
[2024-05-23 00:50] VITALS: BP 124/76; O2SAT 96
[2024-05-23 07:08] LABS: HEMATOCRIT 32.9 % (36.0-45.00); HEMOGLOBIN 10.8 g/dL (12.0-15.00); MEAN CELL VOLUME 85.7 fL (80.00-100.00); MEAN CORPUSCULAR HGB CONC 32.7 g/dl (32.0-36.0); PLATELET COUNT 317 K/uL (150-450); RED BLOOD COUNT 3.84 M/uL (4.00-6.00); RED CELL DISTRIBUTION WIDTH 14.5 % (11.5-14.5)
[2024-05-23 07:40] LABS: ALBUMIN 2.3 gm/dL (3.4-5.0); BILIRUBIN TOTAL 0.25 mg/dL (0.3-1.2); CREATININE SERUM 0.47 mg/dL (0.55-1.02); GFR 134.71; GLOBULINA 3.4 G/DL (2.4-3.5); MAGNESIUM 2.2 mg/dL (1.8-2.4); PHOSPHOROUS 3.1 mg/dL (2.5-4.9); POTASSIUM 4.24 mEq/L (3.5-5.1); TOTAL PROTEIN 5.7 gm/dL (6.4-8.2)
[2024-05-23 07:52] LABS: C-REACTIVE PROTEIN 2.4 MG/DL (0.00-0.29)
[2024-05-23 08:24] VITALS: BP 142/83
[2024-05-23 16:22] VITALS: BP 113/73
[2024-05-24 01:28] VITALS: BP 112/68; O2SAT 97
[2024-05-24 08:48] VITALS: BP 142/80; O2SAT 97
[2024-05-24] MEDS ORDERED: METHYLPREDNISOLONE SOD SUCC 40 MG VIAL IV NR (11:15)
[2024-05-24] MEDS ORDERED: DIPHENHYDRAMINE HCL 50 MG/ML VIAL 1ML IV NR (11:15)
[2024-05-24 17:46] VITALS: BP 135/80; O2SAT 96
[2024-05-25 02:44] VITALS: BP 111/68; O2SAT 95
[2024-05-25 05:21] LABS: MEAN CELL VOLUME 85.4 fL (80.00-100.00); MEAN CORPUSCULAR HGB CONC 33.2 g/dl (32.0-36.0); PLATELET COUNT 284 K/uL (150-450); RED BLOOD COUNT 4.09 M/uL (4.00-6.00); RED CELL DISTRIBUTION WIDTH 14.4 % (11.5-14.5)
[2024-05-25 05:22] LABS: HEMOGLOBIN 11.6 g/dL (12.0-15.00); MEAN CORPUSCULAR HEMOGLOBIN 28.3 pg (27.00-32.0)
[2024-05-25] MEDS ORDERED: BUDESONIDE 0.5 MG/2 ML AMPUL.NEB IH SCH (09:00)
[2024-05-25 09:56] VITALS: BP 123/76; O2SAT 95
[2024-05-25 18:32] VITALS: BP 106/68
[2024-05-26 01:50] VITALS: BP 122/73; O2SAT 96
[2024-05-26 08:14] VITALS: BP 130/85
[2024-05-26] MEDS ORDERED: CYMBALTA30 MG PO (14:23)
[2024-05-26] MEDS ORDERED: SYNTHROID125 MCG PO (14:23)
[2024-05-26] MEDS ORDERED: BENZONATATE100 MG PO (14:23)
[2024-05-26] MEDS ORDERED: GABAPENTIN300 MG PO (14:23)
[2024-05-26] MEDS ORDERED: FAMOTIDINE20 MG PO (14:23)
[2024-05-26] MEDS ORDERED: LIPITOR20 MG PO (14:23)
== END 2024-05-26 14:45 | disposition home or self-care (01) | DRG 871 ==
LOC: ER 12:18 → MEDJ 19:57
PROVIDERS: General Practice; Internal Medicine; Internal Medicine Infectious Disease; ADMIT Internal Medicine Geriatric Medicine; ATTEND Internal Medicine Geriatric Medicine
PROC: BW40ZZZ Ultrasonography of Abdomen (ICD-10-PCS; 2024-05-01)
PROC: BW21YZZ Computerized Tomography (CT Scan) of Abdomen and Pelvis using Other Contrast (ICD-10-PCS; 2024-05-02)
PROC: BW30YZZ Magnetic Resonance Imaging (MRI) of Abdomen using Other Contrast (ICD-10-PCS; 2024-05-03)
PROC: B24BZZZ Ultrasonography of Heart with Aorta (ICD-10-PCS; 2024-05-03)
PROC: 0F903ZX Drainage of Liver, Percutaneous Approach, Diagnostic (ICD-10-PCS; principal; 2024-05-09)
PROC: 0FB03ZX Excision of Liver, Percutaneous Approach, Diagnostic (ICD-10-PCS; 2024-05-09)
PROC: BW20YZZ Computerized Tomography (CT Scan) of Abdomen using Other Contrast (ICD-10-PCS; 2024-05-13)
PROC: 0F903ZX Drainage of Liver, Percutaneous Approach, Diagnostic (ICD-10-PCS; 2024-05-17)
PROC: 0FB03ZX Excision of Liver, Percutaneous Approach, Diagnostic (ICD-10-PCS; 2024-05-17)
PROC: BW21YZZ Computerized Tomography (CT Scan) of Abdomen and Pelvis using Other Contrast (ICD-10-PCS; 2024-05-24)
DX: A40.8 Other streptococcal sepsis (principal); K75.0 Abscess of liver; J44.1 Chronic obstructive pulmonary disease with (acute) exacerbation; N39.0 Urinary tract infection, site not specified; N17.9 Acute kidney failure, unspecified; E78.5 Hyperlipidemia, unspecified; E03.9 Hypothyroidism, unspecified; M79.7 Fibromyalgia; J45.909 Unspecified asthma, uncomplicated; D64.9 Anemia, unspecified; B95.4 Other streptococcus as the cause of diseases classified elsewhere
CPT/HCPCS: 74182

== ENCOUNTER 2024-05-27 15:04 | Emergency (ER) | payer OTHER ==
[~2024-05-27] VITALS: Ht 170.2 cm; Wt 101.6 kg
[~2024-05-27 15:04] MED LIST changes: +ALCLOMETASONE D15 GM TP; +AZELASTINE137 MCG/0. NS; +BENZONATATE100 MG PO; +CYMBALTA30 MG PO; +DIPROSONE OINT.15 GM TP; +DULOXETINE HCL40 MG PO; +FAMOTIDINE20 MG PO; +GABAPENTIN300 MG PO; +HORIZANT300 MG PO; +LIPITOR20 MG PO; +NABUMETONE750 MG PO; +PROAIR RESPICL90 MCG IH; +PROTONIX40 M1 PO; +QUETIAPINE FUM400 M1 PO; +SPIRIVA RESPIMAT4 GM IH; +SYNTHROID125 MCG PO; +TRAZODONE HCL150 MG PO; +VITAMIN D31250 MCG PO
== END 2024-05-27 17:03 | disposition home or self-care (01) ==
LOC: ER 15:07
DX: Z95.828 Presence of other vascular implants and grafts (principal); E03.8 Other specified hypothyroidism; Z88.2 Allergy status to sulfonamides; Z88.5 Allergy status to narcotic agent

== ENCOUNTER → 2024-06-24 06:55 | Outpatient (CLI) | payer OTHER ==
[2024-06-24 07:53] LABS: HEMATOCRIT 41.1 % (36.0-45.00); HEMOGLOBIN 13.9 g/dL (12.0-15.00); MEAN CELL VOLUME 84.2 fL (80.00-100.00); MEAN CORPUSCULAR HEMOGLOBIN 28.4 pg (27.00-32.0); MEAN CORPUSCULAR HGB CONC 33.8 g/dl (32.0-36.0); PLATELET COUNT 297 K/uL (150-450); RED BLOOD COUNT 4.88 M/uL (4.00-6.00); RED CELL DISTRIBUTION WIDTH 15.2 % (11.5-14.5)
[2024-06-24 08:09] LABS: ALBUMIN 3.5 gm/dL (3.4-5.0); BILIRUBIN TOTAL 0.55 mg/dL (0.3-1.2); CALCIUM 9.8 mg/dL (8.5-10.1); CREATININE SERUM 0.63 mg/dL (0.55-1.02); GFR 96.07; GLOBULINA 3.9 G/DL (2.4-3.5); POTASSIUM 4.73 mEq/L (3.5-5.1); TOTAL PROTEIN 7.4 gm/dL (6.4-8.2)
[2024-06-24 08:12] LABS: C-REACTIVE PROTEIN 0.3 MG/DL (0.00-0.29)
== END | disposition home or self-care (01) ==
LOC: LAB 06:55
PROVIDERS: ATTEND Radiology Diagnostic Radiology
DX: K75.0 Abscess of liver (principal); D68.9 Coagulation defect, unspecified

== ENCOUNTER 2024-06-24 09:03 | Outpatient (CLI) | payer OTHER | END 2024-06-24 09:17 | disposition home or self-care (01) | LOC: TOM 09:03 | PROVIDERS: ATTEND Internal Medicine Geriatric Medicine | DX: K75.0 Abscess of liver (principal) ==

== ENCOUNTER 2024-10-15 10:02 | Outpatient (CLI) | payer OTHER ==
[2024-10-15 11:00] LABS: BASO % 1.8 % (0.1-1.2); EOS # 0.20 (0.04-0.54); EOS % 3.2 % (0.7-7.0); LYMPH # 1.46 (1.18-3.74); LYMPH % 23.4 % (19.3-53.1); MEAN PLATELET VOLUME 10.20 fl (9.4-12.4); MONO # 0.71 (0.24-0.82); MONO % 11.4 % (4.7-12.5); NEUT # 3.74 (1.56-6.13); NEUT % 59.7 % (34.0-71.1); RED CELL DISTRIBUTION WIDTH 14.6 % (11.6-14.4)
[2024-10-15 11:24] LABS: URINE APPEARANCE Clear; URINE BILIRRUBIN Negative (NEGATIVE); URINE BLOOD Negative; URINE COLOR Yellow; URINE GLUCOSE Negative (NEGATIVE); URINE KETONE Negative (NEGATIVE); URINE LEUKOCYTE Negative; URINE NITRATE Negative; URINE PROTEIN Negative (NEGATIVE); URINE UROBILINOGEN 0.2 E.U./dl
[2024-10-15 11:28] LABS: URINE BACTERIA 4.7 uL (0.0-1933); URINE EPITHELIAL CELLS 2.2 uL (0.0-38.8); URINE WBC 2.4 uL (0.0-23.2)
[2024-10-15 11:43] LABS: URINE CAST 0.00 uL (0.0-1.40); URINE RBC 1.3 uL (0.0-20.8)
[2024-10-15 11:49] LABS: ALT/SGPT 33.0 U/L (12-78); AST/SGOT 14.0 U/L (15-37); BILIRUBIN TOTAL 0.87 mg/dL (0.3-1.2); BILIRUBIN,CONJUGATED 0.17 mg/dL (0.0-0.2); BUN CREA RATIO 23.0 (7.0-25.0); CHOL HDL RATIO 3.3 (0-5.0); CREATININE SERUM 0.62 mg/dL (0.55-1.02); FE 113.0 ug/dl (50-170); GFR 97.86; GLOBULINA 3.2 G/DL (2.4-3.5); GLUCOSE FASTING 83.0 mg/dL (65-100); HDL 53.0 mg/dl (40-60); LDH 236.0 U/L (84-246); LDL 105.0 mg/dl (0-130); OSMOLALITY SERUM 283.0 MOSM/KG (275-295); PHOSPHOKINASE CREATININE 105.0 U/L (26-192); T4 FREE 1.17 NG/ML (0.76-1.46); VLDL 18.0 (0-39)
[2024-10-15 12:13] LABS: TSH 8.49 uIU/mL (0.358-3.74)
[2024-10-17 11:19] LABS: FOLIC ACID 8.78 ng/ml (4.78-20); VITAMIN D3 25 HYDROXY 21.03 ng/ml (30-120)
== END 2024-10-15 10:52 | disposition home or self-care (01) ==
LOC: LAB 10:02
PROVIDERS: ATTEND Internal Medicine Hematology & Oncology
DX: D50.8 Other iron deficiency anemias (principal); R79.9 Abnormal finding of blood chemistry, unspecified; I10 Essential (primary) hypertension; R74.02 Elevation of levels of lactic acid dehydrogenase [LDH]; K76.89 Other specified diseases of liver; D51.8 Other vitamin B12 deficiency anemias; Z80.3 Family history of malignant neoplasm of breast; D75.1 Secondary polycythemia; M81.0 Age-related osteoporosis without current pathological fracture; E03.8 Other specified hypothyroidism; E78.2 Mixed hyperlipidemia; E03.2 Hypothyroidism due to medicaments and other exogenous substances; E89.0 Postprocedural hypothyroidism; M79.7 Fibromyalgia; Z72.0 Tobacco use; J43.2 Centrilobular emphysema; R06.02 Shortness of breath; Z87.891 Personal history of nicotine dependence; E04.9 Nontoxic goiter, unspecified; N39.0 Urinary tract infection, site not specified; K76.0 Fatty (change of) liver, not elsewhere classified; N36.2 Urethral caruncle; E55.9 Vitamin D deficiency, unspecified